=== PATIENT | male | born 1960 | race Caucasian/White ===

== ENCOUNTER 2016-09-23 13:33 | Inpatient (IN) | payer MEDICARE, MEDICAID ==
[~2016-09-23] VITALS: Ht 172.7 cm; Wt 55.7 kg
[2016-09-23 14:25] LABS: BASOPHILS # (AUTO) 0.01 K/uL (0.00-0.20); BASOPHILS % (AUTO) 0.1 % (0.0-2.0); EOSINOPHILS # (AUTO) 0.06 K/uL (0.00-0.70); EOSINOPHILS % (AUTO) 0.76 % (1.0-6.0); HEMATOCRIT 43.9 % (41-53); HEMOGLOBIN 14.3 g/dL (13.5-17.5); LYMPHOCYTES # (AUTO) 1.1 K/uL (1.0-4.8); LYMPHOCYTES % (AUTO) 13.2 % (22.0-44.0); MEAN CORPUSCULAR HEMOGLOBIN 31.4 pg (26.0-34.0); MEAN CORPUSCULAR HGB CONC 32.7 G/dL (31.0-37.0); MEAN CORPUSCULAR VOLUME 96 fL (80-100); MONOCYTES # (AUTO) 0.7 K/uL (0.1-1.0); MONOCYTES % (AUTO) 8.9 % (2.0-9.0); NEUTROPHILS # (AUTO) 6.2 K/uL (1.8-7.7); NEUTROPHILS % (AUTO) 77.1 % (40.0-70.0); PLATELET COUNT (AUTO) 202 K/uL (150-450); RED BLOOD CELL COUNT(AUTO) 4.56 MIL/uL (4.50-5.90); RED CELL DISTRIBUTION WIDTH 14.9 % (11.5-14.5); WHITE BLOOD COUNT (AUTO) 8.1 K/uL (4.5-11.0)
[2016-09-23 14:41] LABS: ANION GAP 2 mmol/L (8-16); CALCIUM, TOTAL 8.6 mg/dL (8.8-10.5); CARBON DIOXIDE 34 mmol/L (22-29); CHLORIDE 105 mmol/L (98-107); CREATININE 0.64 mg/dL (0.60-1.30); GLOMERULAR FILTR. RATE CALC > 60 mL/min (>60); POTASSIUM 3.5 mmol/L (3.5-5.1); SODIUM SERUM 141 mmol/L (136-145); UREA NITROGEN, BLOOD 11 mg/dL (7-18)
[2016-09-23 14:46] LABS: ALANINE AMINOTRANSFERASE 43 U/L (12-78); ALBUMIN 3.4 g/dL (3.4-5.0); ASPARTATE AMINOTRANSFERASE 42 U/L (15-37); BILIRUBIN,TOTAL 0.2 mg/dL (0.1-1.0); TOTAL PROTEIN, SERUM 6.5 g/dL (6.4-8.2)
[2016-09-23] MEDS ORDERED: TRIFLUOPERAZINE HCL 5 MG TABLET PO ONE (18:00)
[2016-09-23 18:53] VITALS: BP 115/73
[2016-09-24] MEDS ORDERED: LOPERAMIDE HCL 2 MG CAPSULE PO PRN (07:30)
[2016-09-24] MEDS ORDERED: CloNIDine HCL 0.1 MG TABLET PO PRN (07:30)
[2016-09-24] MEDS ORDERED: PETROLATUM,WHITE 71 GM JELLY TP PRN (07:30)
[2016-09-24] MEDS ORDERED: MAGNESIUM HYDROXIDE SUSPENSION 30 ML UDCUP PO PRN (07:30)
[2016-09-24] MEDS ORDERED: BACITRACIN 28.4 GM OINTMENT TP PRN (07:30)
[2016-09-24] MEDS ORDERED: MAG HYDROX/AL HYDROX/SIMETH ES 30 ML SUSPENSION UDCUP PO PRN (07:30)
[2016-09-24] MEDS ORDERED: ONDANSETRON HCL 4 MG TABLET PO PRN (07:30)
[2016-09-24 10:09] VITALS: BP 119/60
[2016-09-24] MEDS: NICOTINE 21 MG/24 HOUR PATCH TD SCH (11:19)
[2016-09-24] MEDS: TRIFLUOPERAZINE HCL 5 MG TABLET PO SCH (16:18)
[2016-09-24 20:56] VITALS: BP 123/77
[2016-09-25] MEDS: TRIFLUOPERAZINE HCL 5 MG TABLET PO SCH ×2 (08:49→16:06)
[2016-09-25] MEDS: NICOTINE 21 MG/24 HOUR PATCH TD SCH (08:52)
[2016-09-25 09:07] VITALS: BP 132/79
[2016-09-25 17:06] VITALS: BP 104/63
[2016-09-26 04:42] VITALS: BP 103/66
[2016-09-26 08:00] VITALS: BP 118/73
[2016-09-26] MEDS: TRIFLUOPERAZINE HCL 5 MG TABLET PO SCH ×2 (09:38→16:24)
[2016-09-26] MEDS: NICOTINE 21 MG/24 HOUR PATCH TD SCH (09:38)
[2016-09-26] MEDS: LORazepam 2 MG TABLET PO PRN (14:09)
[2016-09-26] MEDS: HALOPERIDOL 5 MG TABLET PO PRN (14:09)
[2016-09-26 16:14] VITALS: BP 123/79
[2016-09-27 05:27] VITALS: BP 100/65
[2016-09-27] MEDS: NICOTINE 21 MG/24 HOUR PATCH TD SCH (08:12)
[2016-09-27] MEDS: TRIFLUOPERAZINE HCL 5 MG TABLET PO SCH ×2 (08:12→16:40)
[2016-09-27 08:47] VITALS: BP 110/69
[2016-09-27 17:07] VITALS: BP 102/63
[2016-09-28 01:52] VITALS: BP 100/68
[2016-09-28 08:01] VITALS: BP 132/83
[2016-09-28] MEDS: NICOTINE 21 MG/24 HOUR PATCH TD SCH (08:25)
[2016-09-28] MEDS: TRIFLUOPERAZINE HCL 5 MG TABLET PO SCH ×2 (08:25→16:13)
[2016-09-28 16:46] VITALS: BP 113/64
[2016-09-29 02:46] VITALS: BP 107/65
[2016-09-29 08:14] VITALS: BP 125/67
[2016-09-29] MEDS: TRIFLUOPERAZINE HCL 5 MG TABLET PO SCH ×2 (09:17→16:28)
[2016-09-29] MEDS: NICOTINE 21 MG/24 HOUR PATCH TD SCH (09:17)
[2016-09-29 16:43] VITALS: BP 112/77
[2016-09-30 04:00] VITALS: BP 136/69
[2016-09-30 08:00] VITALS: BP 118/77
[2016-09-30] MEDS: TRIFLUOPERAZINE HCL 5 MG TABLET PO SCH ×2 (08:22→16:15)
[2016-09-30] MEDS: NICOTINE 21 MG/24 HOUR PATCH TD SCH (08:23)
[2016-09-30 17:14] VITALS: BP 110/67
[2016-10-01 08:00] VITALS: BP 143/63
[2016-10-01] MEDS: TRIFLUOPERAZINE HCL 5 MG TABLET PO SCH ×2 (08:21→16:30)
[2016-10-01] MEDS: NICOTINE 21 MG/24 HOUR PATCH TD SCH (08:25)
[2016-10-01 17:00] VITALS: BP 133/79
[2016-10-02] MEDS: TRIFLUOPERAZINE HCL 5 MG TABLET PO SCH ×2 (08:23→16:12)
[2016-10-02] MEDS: NICOTINE 21 MG/24 HOUR PATCH TD SCH (08:23)
[2016-10-02] MEDS ORDERED: GuaiFENesin/D-METHORPHAN/PHENYLEPH 5 ML LIQUID ORAL.SYG PO PRN (10:30)
[2016-10-02 10:32] VITALS: BP 143/86
[2016-10-02 16:21] VITALS: BP 100/69
[2016-10-03 04:18] VITALS: BP 111/79
[2016-10-03 08:00] VITALS: BP 110/78
[2016-10-03] MEDS: NICOTINE 21 MG/24 HOUR PATCH TD SCH (08:22)
[2016-10-03] MEDS: TRIFLUOPERAZINE HCL 5 MG TABLET PO SCH ×2 (08:22→17:16)
[2016-10-03] MEDS: LORazepam 2 MG TABLET PO PRN (08:23)
[2016-10-03] MEDS ORDERED: TRIF2 PO (14:47)
[2016-10-03 16:34] VITALS: BP 115/78
[2016-10-04 01:45] VITALS: BP 117/73
[2016-10-04] MEDS: TRIFLUOPERAZINE HCL 5 MG TABLET PO SCH ×2 (08:33→16:38)
[2016-10-04] MEDS: NICOTINE 21 MG/24 HOUR PATCH TD SCH (08:33)
[2016-10-04] MEDS: HALOPERIDOL 5 MG TABLET PO PRN (08:34)
[2016-10-04 10:51] VITALS: BP 110/83
[2016-10-04 17:29] VITALS: BP 118/64
[2016-10-05 05:14] VITALS: BP 127/82
[2016-10-05 08:05] VITALS: BP 131/74
[2016-10-05] MEDS: TRIFLUOPERAZINE HCL 5 MG TABLET PO SCH ×3 (09:00→17:05)
[2016-10-05] MEDS: NICOTINE 21 MG/24 HOUR PATCH TD SCH (09:00)
[2016-10-05 17:00] VITALS: BP 127/82
[2016-10-05] MEDS: HALOPERIDOL 5 MG TABLET PO PRN (23:07)
[2016-10-05] MEDS: LORazepam 2 MG TABLET PO PRN (23:07)
[2016-10-06] MEDS: ALBUTEROL SULFATE HFA 90 MCG/PUFF 8 GM INHALER IH PRN (04:38)
[2016-10-06 08:30] VITALS: BP 132/64
[2016-10-06] MEDS: LORazepam 2 MG TABLET PO PRN (08:44)
[2016-10-06] MEDS: TRIFLUOPERAZINE HCL 5 MG TABLET PO SCH ×2 (08:44→16:47)
[2016-10-06] MEDS: NICOTINE 21 MG/24 HOUR PATCH TD SCH (09:00)
[2016-10-06 18:24] VITALS: BP 118/77
[2016-10-07 08:00] VITALS: BP 133/70
[2016-10-07] MEDS: TRIFLUOPERAZINE HCL 5 MG TABLET PO SCH ×2 (08:40→17:00)
[2016-10-07] MEDS: NICOTINE 21 MG/24 HOUR PATCH TD SCH (08:42)
[2016-10-07] MEDS: BENZOCAINE/MENTHOL LOZENGE [8 LOZENGES/PACKET] MM PRN (09:52)
[2016-10-07] MEDS: ALBUTEROL SULFATE HFA 90 MCG/PUFF 8 GM INHALER IH PRN (09:52)
[2016-10-07 16:43] VITALS: BP 106/60
[2016-10-08 04:26] VITALS: BP 147/77
[2016-10-08] MEDS: HALOPERIDOL 5 MG TABLET PO PRN (07:52)
[2016-10-08] MEDS: NICOTINE 21 MG/24 HOUR PATCH TD SCH (08:01)
[2016-10-08] MEDS: ALBUTEROL SULFATE HFA 90 MCG/PUFF 8 GM INHALER IH PRN (08:23)
[2016-10-08] MEDS: TRIFLUOPERAZINE HCL 5 MG TABLET PO SCH ×2 (08:23→17:59)
[2016-10-08 08:39] VITALS: BP 134/89
[2016-10-08] MEDS ORDERED: LORazepam 2 MG/ML VIAL IM ONE (12:45)
[2016-10-08] MEDS ORDERED: HALOPERIDOL LACTATE 5 MG/ML VIAL IM ONE (12:45)
[2016-10-08] MEDS ORDERED: DiphenhydrAMINE HCL 50 MG/ML VIAL IM ONE (12:45)
[2016-10-08 16:55] VITALS: BP 102/71
[2016-10-09 05:21] VITALS: BP 120/87
[2016-10-09] MEDS: TRIFLUOPERAZINE HCL 5 MG TABLET PO SCH ×2 (08:51→17:13)
[2016-10-09] MEDS: NICOTINE 21 MG/24 HOUR PATCH TD SCH (08:52)
[2016-10-09] MEDS: HALOPERIDOL 5 MG TABLET PO PRN (10:02)
[2016-10-09] MEDS: LORazepam 2 MG TABLET PO PRN (10:03)
[2016-10-09 10:38] VITALS: BP 114/67
[2016-10-09] MEDS ORDERED: TRIF5 PO (11:40)
[2016-10-09 16:02] VITALS: BP 103/71
[2016-10-10] MEDS: NICOTINE 21 MG/24 HOUR PATCH TD SCH (10:00)
[2016-10-10] MEDS: TRIFLUOPERAZINE HCL 5 MG TABLET PO SCH ×2 (10:00→16:06)
[2016-10-10 13:01] VITALS: BP 131/78
[2016-10-10] MEDS: IBUPROFEN 600 MG TABLET PO PRN (13:03)
[2016-10-10 16:49] VITALS: BP 115/69
[2016-10-11 03:41] VITALS: BP 124/85
[2016-10-11] MEDS: TRIFLUOPERAZINE HCL 5 MG TABLET PO SCH ×2 (08:06→16:37)
[2016-10-11] MEDS: NICOTINE 21 MG/24 HOUR PATCH TD SCH (08:07)
[2016-10-11] MEDS: HALOPERIDOL 5 MG TABLET PO PRN ×2 (08:08→15:44)
[2016-10-11 08:10] VITALS: BP 158/91
[2016-10-11] MEDS: LORazepam 2 MG TABLET PO PRN (15:45)
[2016-10-11 16:45] VITALS: BP 123/78
[2016-10-11] MEDS: ZOLPIDEM TARTRATE 10 MG TABLET PO PRN (23:33)
[2016-10-12 00:01] VITALS: BP 107/76
[2016-10-12] MEDS: TRIFLUOPERAZINE HCL 5 MG TABLET PO SCH ×2 (08:41→15:54)
[2016-10-12] MEDS: NICOTINE 21 MG/24 HOUR PATCH TD SCH (08:42)
[2016-10-12 09:00] VITALS: BP 115/73
[2016-10-12] MEDS: HALOPERIDOL 5 MG TABLET PO PRN (12:59)
[2016-10-12] MEDS: LORazepam 2 MG TABLET PO PRN (12:59)
[2016-10-12 18:36] VITALS: BP 117/77
[2016-10-13] MEDS: TRIFLUOPERAZINE HCL 5 MG TABLET PO SCH ×2 (08:07→15:51)
[2016-10-13] MEDS: LORazepam 2 MG TABLET PO PRN (08:07)
[2016-10-13] MEDS: NICOTINE 21 MG/24 HOUR PATCH TD SCH (08:08)
[2016-10-13 16:47] VITALS: BP 120/60
[2016-10-14 00:45] VITALS: BP 110/63
[2016-10-14] MEDS: ZOLPIDEM TARTRATE 10 MG TABLET PO PRN ×2 (00:47→20:56)
[2016-10-14 08:00] VITALS: BP 136/97
[2016-10-14] MEDS: NICOTINE 21 MG/24 HOUR PATCH TD SCH (09:08)
[2016-10-14] MEDS: TRIFLUOPERAZINE HCL 5 MG TABLET PO SCH ×2 (09:09→16:31)
[2016-10-14 18:21] VITALS: BP 131/79
[2016-10-15 08:05] VITALS: BP 124/71
[2016-10-15] MEDS: NICOTINE 21 MG/24 HOUR PATCH TD SCH (09:00)
[2016-10-15] MEDS: TRIFLUOPERAZINE HCL 5 MG TABLET PO SCH ×2 (09:07→16:31)
[2016-10-15 16:34] VITALS: BP 126/72
[2016-10-15] MEDS: IBUPROFEN 600 MG TABLET PO PRN (16:34)
[2016-10-15] MEDS: ZOLPIDEM TARTRATE 10 MG TABLET PO PRN (22:27)
[2016-10-16 09:00] VITALS: BP 114/65
[2016-10-16] MEDS: NICOTINE 21 MG/24 HOUR PATCH TD SCH (09:00)
[2016-10-16] MEDS: TRIFLUOPERAZINE HCL 5 MG TABLET PO SCH ×2 (09:00→16:22)
[2016-10-16] MEDS: LORazepam 2 MG TABLET PO PRN (15:43)
[2016-10-16] MEDS: HALOPERIDOL 5 MG TABLET PO PRN (15:43)
[2016-10-17] MEDS: HALOPERIDOL 5 MG TABLET PO PRN ×2 (08:30→17:34)
[2016-10-17] MEDS: LORazepam 2 MG TABLET PO PRN ×2 (08:30→17:34)
[2016-10-17 08:40] VITALS: BP 115/70
[2016-10-17] MEDS: TRIFLUOPERAZINE HCL 5 MG TABLET PO SCH ×2 (10:29→17:34)
[2016-10-17] MEDS: NICOTINE 21 MG/24 HOUR PATCH TD SCH (10:30)
[2016-10-17 16:40] VITALS: BP 107/70
[2016-10-18 06:31] VITALS: BP 112/70
[2016-10-18 08:10] VITALS: BP 107/58
[2016-10-18] MEDS: TRIFLUOPERAZINE HCL 5 MG TABLET PO SCH ×2 (09:09→16:43)
[2016-10-18] MEDS: NICOTINE 21 MG/24 HOUR PATCH TD SCH (09:16)
[2016-10-18 16:53] VITALS: BP 112/78
[2016-10-18] MEDS: ZOLPIDEM TARTRATE 10 MG TABLET PO PRN (20:44)
[2016-10-19 04:56] VITALS: BP 112/76
[2016-10-19 08:00] VITALS: BP 114/68
[2016-10-19] MEDS: TRIFLUOPERAZINE HCL 5 MG TABLET PO SCH ×2 (08:59→16:50)
[2016-10-19] MEDS: NICOTINE 21 MG/24 HOUR PATCH TD SCH (09:00)
[2016-10-19 16:50] VITALS: BP 129/78
[2016-10-19] MEDS: LORazepam 2 MG TABLET PO PRN (21:38)
[2016-10-20 08:00] VITALS: BP 116/76
[2016-10-20] MEDS: LORazepam 2 MG TABLET PO PRN (08:16)
[2016-10-20] MEDS: TRIFLUOPERAZINE HCL 5 MG TABLET PO SCH ×2 (08:16→16:22)
[2016-10-20] MEDS: NICOTINE 21 MG/24 HOUR PATCH TD SCH (08:16)
[2016-10-20 16:28] VITALS: BP 118/82
[2016-10-20] MEDS: HALOPERIDOL 5 MG TABLET PO PRN (16:36)
[2016-10-21 03:30] VITALS: BP 121/76
[2016-10-21] MEDS: IBUPROFEN 600 MG TABLET PO PRN ×2 (03:35→19:38)
[2016-10-21] MEDS: NICOTINE 21 MG/24 HOUR PATCH TD SCH (08:46)
[2016-10-21] MEDS: TRIFLUOPERAZINE HCL 5 MG TABLET PO SCH ×2 (08:46→16:07)
[2016-10-21] MEDS: LORazepam 2 MG TABLET PO PRN (08:46)
[2016-10-21 10:14] VITALS: BP 140/86
[2016-10-21 16:46] VITALS: BP 126/82
[2016-10-21 19:35] VITALS: BP 108/78
[2016-10-22] MEDS: IBUPROFEN 600 MG TABLET PO PRN (02:43)
[2016-10-22] MEDS: LORazepam 2 MG TABLET PO PRN (08:30)
[2016-10-22] MEDS: TRIFLUOPERAZINE HCL 5 MG TABLET PO SCH ×2 (08:30→16:17)
[2016-10-22] MEDS: NICOTINE 21 MG/24 HOUR PATCH TD SCH (08:30)
[2016-10-22 09:56] VITALS: BP 117/75
[2016-10-22 16:45] VITALS: BP 124/76
[2016-10-23] MEDS: IBUPROFEN 600 MG TABLET PO PRN (00:05)
[2016-10-23 00:06] VITALS: BP 120/76
[2016-10-23] MEDS: TRIFLUOPERAZINE HCL 5 MG TABLET PO SCH ×2 (08:14→16:44)
[2016-10-23] MEDS: NICOTINE 21 MG/24 HOUR PATCH TD SCH (08:17)
[2016-10-23] MEDS ORDERED: GuaiFENesin/D-METHORPHAN/PHENYLEPH 5 ML LIQUID ORAL.SYG PO PRN (10:15)
[2016-10-23 10:36] VITALS: BP 123/68
[2016-10-23] MEDS: BENZOCAINE/MENTHOL LOZENGE [8 LOZENGES/PACKET] MM PRN (12:27)
[2016-10-23] MEDS: LORazepam 2 MG TABLET PO PRN (15:47)
[2016-10-23] MEDS: HALOPERIDOL 5 MG TABLET PO PRN (15:47)
[2016-10-23 16:07] VITALS: BP 119/79
[2016-10-24 02:58] VITALS: BP 125/76
[2016-10-24] MEDS: ACETAMINOPHEN 325 MG TABLET PO PRN ×2 (03:00→23:48)
[2016-10-24 08:12] VITALS: BP 115/79
[2016-10-24] MEDS: TRIFLUOPERAZINE HCL 5 MG TABLET PO SCH ×2 (08:57→16:34)
[2016-10-24] MEDS: NICOTINE 21 MG/24 HOUR PATCH TD SCH (09:00)
[2016-10-24] MEDS: DICLOFENAC SODIUM 1% 100 GM GEL [2GM] TP PRN ×2 (12:24→19:52)
[2016-10-24 16:46] VITALS: BP 142/85
[2016-10-24 19:49] VITALS: BP 132/88
[2016-10-24 21:15] VITALS: BP 132/84
[2016-10-24] MEDS: IBUPROFEN 600 MG TABLET PO PRN (21:16)
[2016-10-24 23:45] VITALS: BP 128/80
[2016-10-25] MEDS: TRIFLUOPERAZINE HCL 5 MG TABLET PO SCH (08:49)
[2016-10-25] MEDS: NICOTINE 21 MG/24 HOUR PATCH TD SCH (09:00)
[2016-10-25 09:18] VITALS: BP 130/72
[2016-10-25] MEDS: DICLOFENAC SODIUM 1% 100 GM GEL [2GM] TP PRN (12:59)
[2016-10-25] MEDS: IBUPROFEN 600 MG TABLET PO PRN ×2 (12:59→19:29)
[2016-10-25] MEDS: TRIFLUOPERAZINE HCL 10 MG TABLET PO SCH (16:08)
[2016-10-25 16:38] VITALS: BP 119/64
[2016-10-25 19:26] VITALS: BP 116/63
[2016-10-25] MEDS: ZOLPIDEM TARTRATE 10 MG TABLET PO PRN (22:26)
[2016-10-26 03:22] VITALS: BP 132/77
[2016-10-26] MEDS: ACETAMINOPHEN 325 MG TABLET PO PRN ×2 (04:35→19:11)
[2016-10-26] MEDS: DICLOFENAC SODIUM 1% 100 GM GEL [2GM] TP PRN (08:54)
[2016-10-26] MEDS: TRIFLUOPERAZINE HCL 10 MG TABLET PO SCH ×2 (08:54→17:10)
[2016-10-26] MEDS: NICOTINE 21 MG/24 HOUR PATCH TD SCH (09:00)
[2016-10-26 09:36] VITALS: BP 111/78
[2016-10-26] MEDS: IBUPROFEN 600 MG TABLET PO PRN (12:20)
[2016-10-26 16:43] VITALS: BP 118/62
[2016-10-26] MEDS: ZOLPIDEM TARTRATE 10 MG TABLET PO PRN (20:30)
[2016-10-27] MEDS: IBUPROFEN 600 MG TABLET PO PRN ×2 (03:08→18:42)
[2016-10-27 03:10] VITALS: BP 121/86
[2016-10-27 08:02] VITALS: BP 131/80
[2016-10-27] MEDS: ACETAMINOPHEN 325 MG TABLET PO PRN (08:02)
[2016-10-27] MEDS: DICLOFENAC SODIUM 1% 100 GM GEL [2GM] TP PRN (08:03)
[2016-10-27] MEDS: NICOTINE 21 MG/24 HOUR PATCH TD SCH (08:03)
[2016-10-27] MEDS: TRIFLUOPERAZINE HCL 10 MG TABLET PO SCH ×2 (08:03→16:44)
[2016-10-27 08:30] VITALS: BP 131/90
[2016-10-27 16:59] VITALS: BP 132/87
[2016-10-28] MEDS: ZOLPIDEM TARTRATE 10 MG TABLET PO PRN ×2 (01:38→21:18)
[2016-10-28] MEDS: TRIFLUOPERAZINE HCL 10 MG TABLET PO SCH ×2 (09:00→16:11)
[2016-10-28] MEDS: NICOTINE 21 MG/24 HOUR PATCH TD SCH ×2 (09:00→09:01)
[2016-10-28] MEDS: IBUPROFEN 600 MG TABLET PO PRN ×2 (10:56→17:09)
[2016-10-28 11:56] VITALS: BP 130/80
[2016-10-28 16:45] VITALS: BP 128/90
[2016-10-28 17:07] VITALS: BP 132/90
[2016-10-29 08:20] VITALS: BP 124/76
[2016-10-29] MEDS: TRIFLUOPERAZINE HCL 10 MG TABLET PO SCH ×2 (08:31→17:04)
[2016-10-29] MEDS: IBUPROFEN 600 MG TABLET PO PRN ×2 (08:32→18:43)
[2016-10-29 08:37] VITALS: BP 124/76
[2016-10-29] MEDS: NICOTINE 21 MG/24 HOUR PATCH TD SCH (09:00)
[2016-10-29 09:33] VITALS: BP 126/80
[2016-10-29 17:20] VITALS: BP 125/88
[2016-10-30 00:11] VITALS: BP 121/73
[2016-10-30] MEDS: ZOLPIDEM TARTRATE 10 MG TABLET PO PRN (00:15)
[2016-10-30 08:00] VITALS: BP 132/56
[2016-10-30] MEDS: TRIFLUOPERAZINE HCL 10 MG TABLET PO SCH ×2 (08:27→16:34)
[2016-10-30] MEDS: NICOTINE 21 MG/24 HOUR PATCH TD SCH (08:27)
[2016-10-30 16:41] VITALS: BP 111/88
[2016-10-31] MEDS: ZOLPIDEM TARTRATE 10 MG TABLET PO PRN (01:02)
[2016-10-31 08:00] VITALS: BP 121/94
[2016-10-31] MEDS: TRIFLUOPERAZINE HCL 10 MG TABLET PO SCH ×2 (08:12→17:15)
[2016-10-31 08:13] VITALS: BP 12/94
[2016-10-31] MEDS: DICLOFENAC SODIUM 1% 100 GM GEL [2GM] TP PRN (08:13)
[2016-10-31] MEDS: ACETAMINOPHEN 325 MG TABLET PO PRN (08:13)
[2016-10-31] MEDS: NICOTINE 21 MG/24 HOUR PATCH TD SCH (09:00)
[2016-10-31] MEDS: BENZTROPINE MESYLATE 2 MG TABLET PO SCH ×2 (11:42→17:15)
[2016-10-31 18:27] VITALS: BP 125/78
[2016-11-01] MEDS: NICOTINE 21 MG/24 HOUR PATCH TD SCH (09:00)
[2016-11-01 09:03] VITALS: BP_SYST 140
[2016-11-01] MEDS: BENZTROPINE MESYLATE 2 MG TABLET PO SCH ×2 (09:09→16:04)
[2016-11-01] MEDS: TRIFLUOPERAZINE HCL 10 MG TABLET PO SCH ×2 (09:09→16:04)
[2016-11-01 16:37] VITALS: BP 104/62
[2016-11-02] MEDS: TRIFLUOPERAZINE HCL 10 MG TABLET PO SCH (08:07)
[2016-11-02] MEDS: BENZTROPINE MESYLATE 2 MG TABLET PO SCH (08:07)
[2016-11-02 08:30] VITALS: BP 130/70
[2016-11-02] MEDS: NICOTINE 21 MG/24 HOUR PATCH TD SCH (09:00)
[2016-11-02] MEDS ORDERED: BENZ2TAB10 PO (09:27)
[2016-11-02] MEDS ORDERED: TRIF10 PO (09:27)
== END 2016-11-02 14:30 | disposition home or self-care (01) | DRG 885 ==
LOC: EMS 13:33 → 3EX 18:29 → UNDODISIN 10-02 14:10
DX: F20.0 Paranoid schizophrenia (principal); E44.0 Moderate protein-calorie malnutrition; Z68.1 Body mass index [BMI] 19.9 or less, adult; F32.9 Major depressive disorder, single episode, unspecified; J44.9 Chronic obstructive pulmonary disease, unspecified; M19.90 Unspecified osteoarthritis, unspecified site; G47.00 Insomnia, unspecified; E83.51 Hypocalcemia; F17.210 Nicotine dependence, cigarettes, uncomplicated; Z98.890 Other specified postprocedural states; Z71.6 Tobacco abuse counseling; Z59.0 Homelessness; Z72.89 Other problems related to lifestyle; Z71.41 Alcohol abuse counseling and surveillance of alcoholic
CPT/HCPCS: 71020; 87081; 99285; G0480; J1200; J1630; J2060; J3535

== ENCOUNTER 2017-10-18 12:13 | Inpatient (IN) | payer MEDICARE, MEDICAID ==
[~2017-10-18] VITALS: Ht 172.7 cm; Wt 59.2 kg
[~2017-10-18 12:13] MED LIST: BENZ2TAB10 PO; TRIF10 PO
[2017-10-18 13:41] LABS: BASOPHILS % (AUTO) 0.3 % (0.0-2.0); EOSINOPHILS % (AUTO) 0.5 % (1.0-6.0); HEMATOCRIT 47.8 % (41-53); HEMOGLOBIN 16.3 g/dL (13.5-17.5); LYMPHOCYTES # (AUTO) 1.2 K/uL (1.0-4.8); LYMPHOCYTES % (AUTO) 10.5 % (22.0-44.0); MEAN CORPUSCULAR HEMOGLOBIN 31.4 pg (26.0-34.0); MEAN CORPUSCULAR HGB CONC 34.1 G/dL (31.0-37.0); MEAN CORPUSCULAR VOLUME 92 fL (80-100); MONOCYTES # (AUTO) 0.7 K/uL (0.1-1.0); MONOCYTES % (AUTO) 6.3 % (2.0-9.0); NEUTROPHILS # (AUTO) 9.1 K/uL (1.8-7.7); NEUTROPHILS % (AUTO) 82.4 % (40.0-70.0); PLATELET COUNT (AUTO) 176 K/uL (150-450); RED CELL DISTRIBUTION WIDTH 13.2 % (11.5-14.5)
[2017-10-18 13:48] LABS: AMPHET/METH SCREEN,URINE NEGATIVE (NEGATIVE); BARBITURATE SCREEN, URINE NEGATIVE (NEGATIVE); BENZODIAZEPINES SCREEN,URINE NEGATIVE (NEGATIVE); CANNABINOID SCREEN,URINE NEGATIVE (NEGATIVE); COCAINE SCREEN,URINE NEGATIVE (NEGATIVE); METHADONE SCREEN, URINE NEGATIVE (NEGATIVE); OPIATE SCREEN,URINE NEGATIVE (NEGATIVE); PHENCYCLIDINE SCREEN,URINE NEGATIVE (NEGATIVE)
[2017-10-18 13:55] LABS: ANION GAP 8 mmol/L (8-16); CALCIUM, TOTAL 9.3 mg/dL (8.8-10.5); CARBON DIOXIDE 28 mmol/L (22-29); CHLORIDE 101 mmol/L (98-107); CREATININE 1.04 mg/dL (0.60-1.30); GLOMERULAR FILTR. RATE CALC > 60 mL/min (>60); GLUCOSE,RANDOM 157 mg/dL (70-110); POTASSIUM 4.7 mmol/L (3.5-5.1); SODIUM SERUM 137 mmol/L (136-145); UREA NITROGEN, BLOOD 25 mg/dL (7-18)
[2017-10-18 14:01] LABS: ALANINE AMINOTRANSFERASE 26 U/L (12-78); ALBUMIN 4.2 g/dL (3.4-5.0); ALKALINE PHOSPHATASE 66 U/L (46-116); ASPARTATE AMINOTRANSFERASE 63 U/L (15-37); BILIRUBIN,TOTAL 1.1 mg/dL (0.1-1.0); TOTAL PROTEIN, SERUM 7.4 g/dL (6.4-8.2)
[2017-10-18] MEDS ORDERED: HALOPERIDOL 5 MG TABLET PO PRN (14:45)
[2017-10-18] MEDS ORDERED: ZOLPIDEM TARTRATE 10 MG TABLET PO PRN (14:45)
[2017-10-18] MEDS ORDERED: LORazepam 2 MG TABLET PO PRN (14:45)
[2017-10-18 16:29] VITALS: BP 106/75
[2017-10-18 16:32] VITALS: BP 106/75
[2017-10-18] MEDS: BENZTROPINE MESYLATE 2 MG TABLET PO SCH (17:08)
[2017-10-18] MEDS ORDERED: PNEUMOCOCCAL VACCINE POLYVALENT 0.5 ML VIAL [PPSV23] IM ONE (17:45)
[2017-10-18] MEDS ORDERED: INFLUENZA VIRUS VACCINE QVS 2017-18 (3YR+)/PF 60 MCG/0.5 ML SYRINGE IM ONE (17:45)
[2017-10-19 00:15] VITALS: BP 101/68
[2017-10-19 08:12] VITALS: BP 117/60
[2017-10-19] MEDS: BENZTROPINE MESYLATE 2 MG TABLET PO SCH ×2 (08:31→16:41)
[2017-10-19 08:53] LABS: BASOPHILS % (AUTO) 0.3 % (0.0-2.0); EOSINOPHILS % (AUTO) 2.3 % (1.0-6.0); HEMOGLOBIN 15.5 g/dL (13.5-17.5); LYMPHOCYTES # (AUTO) 1.6 K/uL (1.0-4.8); LYMPHOCYTES % (AUTO) 14.7 % (22.0-44.0); MEAN CORPUSCULAR HEMOGLOBIN 31.5 pg (26.0-34.0); MEAN CORPUSCULAR HGB CONC 33.8 G/dL (31.0-37.0); MEAN CORPUSCULAR VOLUME 93 fL (80-100); MONOCYTES # (AUTO) 0.9 K/uL (0.1-1.0); MONOCYTES % (AUTO) 8.5 % (2.0-9.0); NEUTROPHILS # (AUTO) 7.9 K/uL (1.8-7.7); NEUTROPHILS % (AUTO) 74.2 % (40.0-70.0); PLATELET COUNT (AUTO) 166 K/uL (150-450); RED BLOOD CELL COUNT(AUTO) 4.92 MIL/uL (4.50-5.90); RED CELL DISTRIBUTION WIDTH 13.5 % (11.5-14.5)
[2017-10-19] MEDS ORDERED: TRIFLUOPERAZINE HCL 10 MG TABLET PO SCH (09:00)
[2017-10-19 09:24] LABS: HEMOGLOBIN A1C 5.4 % (4.5-6.2)
[2017-10-19 09:54] LABS: FREE T4 (FREE THYROXINE) 1.05 ng/dL (0.76-1.46); THYROID STIMULATING HORMONE 0.57 uIU/mL (0.36-3.74)
[2017-10-19] MEDS ORDERED: LOPERAMIDE HCL 2 MG CAPSULE PO PRN (11:30)
[2017-10-19] MEDS ORDERED: MAGNESIUM HYDROXIDE SUSPENSION 30 ML UDCUP PO PRN (11:30)
[2017-10-19] MEDS ORDERED: ONDANSETRON HCL 4 MG TABLET PO PRN (11:30)
[2017-10-19] MEDS ORDERED: BACITRACIN 28.4 GM OINTMENT TP PRN (11:30)
[2017-10-19] MEDS ORDERED: MAG HYDROX/AL HYDROX/SIMETH ES 30 ML SUSPENSION UDCUP PO PRN (11:30)
[2017-10-19] MEDS ORDERED: PETROLATUM,WHITE 71 GM JELLY TP PRN (11:30)
[2017-10-19] MEDS ORDERED: ACETAMINOPHEN 325 MG TABLET PO PRN (11:30)
[2017-10-19] MEDS ORDERED: ALBUTEROL SULFATE HFA 90 MCG/PUFF 8 GM INHALER IH PRN (11:30)
[2017-10-19] MEDS ORDERED: IBUPROFEN 600 MG TABLET PO PRN (11:30)
[2017-10-19] MEDS ORDERED: CloNIDine HCL 0.1 MG TABLET PO PRN (11:30)
[2017-10-19] MEDS ORDERED: BENZOCAINE/MENTHOL LOZENGE MM PRN (11:30)
[2017-10-19 16:30] VITALS: BP 109/60
[2017-10-19] MEDS: TRIFLUOPERAZINE HCL 10 MG TABLET PO SCH (16:41)
[2017-10-20 06:00] VITALS: BP 105/61
[2017-10-20] MEDS: BENZTROPINE MESYLATE 2 MG TABLET PO SCH ×2 (08:19→17:05)
[2017-10-20] MEDS: OMEPRAZOLE 20 MG CAPSULE PO SCH (08:19)
[2017-10-20] MEDS: DOCUSATE SODIUM 100 MG CAPSULE PO SCH (08:19)
[2017-10-20] MEDS: TRIFLUOPERAZINE HCL 10 MG TABLET PO SCH ×2 (08:20→17:05)
[2017-10-20 08:32] VITALS: BP 102/62
[2017-10-20] MEDS: TERBINAFINE HCL 1% 30 GM CREAM TP SCH (08:56)
[2017-10-20 16:03] VITALS: BP 109/66
[2017-10-21 01:31] VITALS: BP 109/63
[2017-10-21 08:33] VITALS: BP 100/66
[2017-10-21] MEDS: BENZTROPINE MESYLATE 2 MG TABLET PO SCH ×2 (08:39→16:09)
[2017-10-21] MEDS: OMEPRAZOLE 20 MG CAPSULE PO SCH (08:39)
[2017-10-21] MEDS: TRIFLUOPERAZINE HCL 10 MG TABLET PO SCH ×2 (08:39→16:09)
[2017-10-21] MEDS: DOCUSATE SODIUM 100 MG CAPSULE PO SCH (08:39)
[2017-10-21] MEDS: TERBINAFINE HCL 1% 30 GM CREAM TP SCH ×2 (08:40→09:00)
[2017-10-21 16:15] VITALS: BP 107/61
[2017-10-22 00:35] VITALS: BP 108/65
[2017-10-22 08:03] VITALS: BP 112/62
[2017-10-22] MEDS: TRIFLUOPERAZINE HCL 10 MG TABLET PO SCH ×2 (08:34→16:37)
[2017-10-22] MEDS: OMEPRAZOLE 20 MG CAPSULE PO SCH (08:34)
[2017-10-22] MEDS: BENZTROPINE MESYLATE 2 MG TABLET PO SCH ×2 (08:34→16:36)
[2017-10-22] MEDS: DOCUSATE SODIUM 100 MG CAPSULE PO SCH (08:34)
[2017-10-22] MEDS: TERBINAFINE HCL 1% 30 GM CREAM TP SCH (08:41)
[2017-10-22 16:01] VITALS: BP 108/66
[2017-10-23 01:14] VITALS: BP 101/63
[2017-10-23 08:17] VITALS: BP 116/66
[2017-10-23] MEDS: DOCUSATE SODIUM 100 MG CAPSULE PO SCH (08:45)
[2017-10-23] MEDS: OMEPRAZOLE 20 MG CAPSULE PO SCH (08:45)
[2017-10-23] MEDS: BENZTROPINE MESYLATE 2 MG TABLET PO SCH ×2 (08:45→16:46)
[2017-10-23] MEDS: TRIFLUOPERAZINE HCL 10 MG TABLET PO SCH ×2 (08:51→16:46)
[2017-10-23 16:03] VITALS: BP 126/72
[2017-10-24 02:38] VITALS: BP 115/70
[2017-10-24 08:10] VITALS: BP 112/70
[2017-10-24] MEDS: BENZTROPINE MESYLATE 2 MG TABLET PO SCH ×2 (08:16→16:51)
[2017-10-24] MEDS: TRIFLUOPERAZINE HCL 10 MG TABLET PO SCH ×2 (08:17→16:51)
[2017-10-24] MEDS: OMEPRAZOLE 20 MG CAPSULE PO SCH (08:17)
[2017-10-24] MEDS: DOCUSATE SODIUM 100 MG CAPSULE PO SCH (08:17)
[2017-10-24 16:09] VITALS: BP 116/65
[2017-10-25 06:50] VITALS: BP 105/67
[2017-10-25 08:12] VITALS: BP 102/66
[2017-10-25] MEDS: DOCUSATE SODIUM 100 MG CAPSULE PO SCH (08:42)
[2017-10-25] MEDS: BENZTROPINE MESYLATE 2 MG TABLET PO SCH ×2 (08:42→16:34)
[2017-10-25] MEDS: TRIFLUOPERAZINE HCL 10 MG TABLET PO SCH ×2 (08:42→16:34)
[2017-10-25] MEDS: OMEPRAZOLE 20 MG CAPSULE PO SCH (08:42)
[2017-10-25 16:07] VITALS: BP 103/63
[2017-10-26 06:57] VITALS: BP 101/60
[2017-10-26 08:24] VITALS: BP 109/71
[2017-10-26] MEDS: BENZTROPINE MESYLATE 2 MG TABLET PO SCH ×2 (08:25→16:11)
[2017-10-26] MEDS: TRIFLUOPERAZINE HCL 10 MG TABLET PO SCH ×2 (08:26→16:12)
[2017-10-26] MEDS: DOCUSATE SODIUM 100 MG CAPSULE PO SCH (08:26)
[2017-10-26] MEDS: OMEPRAZOLE 20 MG CAPSULE PO SCH (08:26)
[2017-10-26 16:15] VITALS: BP 101/60
[2017-10-27 00:22] VITALS: BP 119/65
[2017-10-27] MEDS: TRIFLUOPERAZINE HCL 10 MG TABLET PO SCH ×2 (08:18→16:34)
[2017-10-27] MEDS: OMEPRAZOLE 20 MG CAPSULE PO SCH (08:19)
[2017-10-27] MEDS: BENZTROPINE MESYLATE 2 MG TABLET PO SCH ×2 (08:19→16:34)
[2017-10-27] MEDS: DOCUSATE SODIUM 100 MG CAPSULE PO SCH (08:19)
[2017-10-27 08:23] VITALS: BP 104/62
[2017-10-27 16:14] VITALS: BP 118/63
[2017-10-28 00:13] VITALS: BP 108/61
[2017-10-28] MEDS: TRIFLUOPERAZINE HCL 10 MG TABLET PO SCH ×2 (08:06→16:17)
[2017-10-28] MEDS: DOCUSATE SODIUM 100 MG CAPSULE PO SCH (08:06)
[2017-10-28] MEDS: OMEPRAZOLE 20 MG CAPSULE PO SCH (08:06)
[2017-10-28] MEDS: BENZTROPINE MESYLATE 2 MG TABLET PO SCH ×2 (08:06→16:17)
[2017-10-28 08:17] VITALS: BP 105/61
[2017-10-28 16:09] VITALS: BP 102/64
[2017-10-29 01:02] VITALS: BP 107/66
[2017-10-29 08:32] VITALS: BP 108/63
[2017-10-29] MEDS: DOCUSATE SODIUM 100 MG CAPSULE PO SCH (08:43)
[2017-10-29] MEDS: OMEPRAZOLE 20 MG CAPSULE PO SCH (08:43)
[2017-10-29] MEDS: TRIFLUOPERAZINE HCL 10 MG TABLET PO SCH ×2 (08:43→16:38)
[2017-10-29] MEDS: BENZTROPINE MESYLATE 2 MG TABLET PO SCH ×2 (08:43→16:38)
[2017-10-29 16:03] VITALS: BP 109/65
[2017-10-30 06:11] VITALS: BP 105/62
[2017-10-30] MEDS: OMEPRAZOLE 20 MG CAPSULE PO SCH (08:20)
[2017-10-30] MEDS: BENZTROPINE MESYLATE 2 MG TABLET PO SCH ×2 (08:20→16:43)
[2017-10-30] MEDS: DOCUSATE SODIUM 100 MG CAPSULE PO SCH (08:20)
[2017-10-30] MEDS: TRIFLUOPERAZINE HCL 10 MG TABLET PO SCH ×2 (08:20→16:43)
[2017-10-30 08:22] VITALS: BP 101/61
[2017-10-30 16:10] VITALS: BP 115/61
[2017-10-31 00:18] VITALS: BP 106/71
[2017-10-31] MEDS: OMEPRAZOLE 20 MG CAPSULE PO SCH (08:51)
[2017-10-31] MEDS: DOCUSATE SODIUM 100 MG CAPSULE PO SCH (08:52)
[2017-10-31] MEDS: BENZTROPINE MESYLATE 2 MG TABLET PO SCH ×2 (08:52→16:09)
[2017-10-31] MEDS: TRIFLUOPERAZINE HCL 10 MG TABLET PO SCH ×2 (08:52→16:09)
[2017-10-31 09:10] VITALS: BP 107/69
[2017-10-31 16:09] VITALS: BP 116/72
[2017-11-01 06:13] VITALS: BP 121/87
[2017-11-01] MEDS: BENZTROPINE MESYLATE 2 MG TABLET PO SCH ×2 (08:25→16:33)
[2017-11-01] MEDS: TRIFLUOPERAZINE HCL 10 MG TABLET PO SCH ×2 (08:25→16:33)
[2017-11-01] MEDS: OMEPRAZOLE 20 MG CAPSULE PO SCH (08:25)
[2017-11-01 08:27] VITALS: BP 127/78
[2017-11-01] MEDS: DOCUSATE SODIUM 100 MG CAPSULE PO SCH (08:29)
[2017-11-01 16:05] VITALS: BP 107/72
[2017-11-02 00:15] VITALS: BP 101/60
[2017-11-02] MEDS: OMEPRAZOLE 20 MG CAPSULE PO SCH (08:26)
[2017-11-02] MEDS: BENZTROPINE MESYLATE 2 MG TABLET PO SCH ×2 (08:26→16:09)
[2017-11-02] MEDS: TRIFLUOPERAZINE HCL 10 MG TABLET PO SCH ×2 (08:26→16:09)
[2017-11-02 08:29] VITALS: BP 110/67
[2017-11-02] MEDS: DOCUSATE SODIUM 100 MG CAPSULE PO SCH (08:34)
[2017-11-02 17:17] VITALS: BP 102/67
[2017-11-03 01:43] VITALS: BP 102/67
[2017-11-03 08:08] VITALS: BP 104/66
[2017-11-03] MEDS: TRIFLUOPERAZINE HCL 10 MG TABLET PO SCH ×2 (08:22→16:17)
[2017-11-03] MEDS: BENZTROPINE MESYLATE 2 MG TABLET PO SCH ×2 (08:22→16:16)
[2017-11-03] MEDS: OMEPRAZOLE 20 MG CAPSULE PO SCH (08:22)
[2017-11-03] MEDS: DOCUSATE SODIUM 100 MG CAPSULE PO SCH (08:26)
[2017-11-03 16:15] VITALS: BP 124/70
[2017-11-04 06:37] VITALS: BP 108/76
[2017-11-04 08:04] VITALS: BP 102/63
[2017-11-04] MEDS: BENZTROPINE MESYLATE 2 MG TABLET PO SCH ×2 (08:35→16:06)
[2017-11-04] MEDS: OMEPRAZOLE 20 MG CAPSULE PO SCH (08:35)
[2017-11-04] MEDS: TRIFLUOPERAZINE HCL 10 MG TABLET PO SCH ×2 (08:35→16:06)
[2017-11-04] MEDS: DOCUSATE SODIUM 100 MG CAPSULE PO SCH (08:41)
[2017-11-04 16:15] VITALS: BP 106/67
[2017-11-05 01:17] VITALS: BP 102/62
[2017-11-05 08:08] VITALS: BP 112/72
[2017-11-05] MEDS: BENZTROPINE MESYLATE 2 MG TABLET PO SCH ×2 (09:06→16:46)
[2017-11-05] MEDS: OMEPRAZOLE 20 MG CAPSULE PO SCH (09:06)
[2017-11-05] MEDS: DOCUSATE SODIUM 100 MG CAPSULE PO SCH (09:06)
[2017-11-05] MEDS: TRIFLUOPERAZINE HCL 10 MG TABLET PO SCH ×2 (09:06→16:46)
[2017-11-05] MEDS: LACTOBAC ACID/BULG/BIFID/THERM TABLET PO SCH (14:00)
[2017-11-05 16:05] VITALS: BP 108/67
[2017-11-06 05:59] VITALS: BP 109/68
[2017-11-06 08:03] VITALS: BP 110/71
[2017-11-06] MEDS: BENZTROPINE MESYLATE 2 MG TABLET PO SCH ×2 (08:06→16:40)
[2017-11-06] MEDS: OMEPRAZOLE 20 MG CAPSULE PO SCH (08:06)
[2017-11-06] MEDS: TRIFLUOPERAZINE HCL 10 MG TABLET PO SCH ×2 (08:06→16:39)
[2017-11-06] MEDS: LACTOBAC ACID/BULG/BIFID/THERM TABLET PO SCH (08:06)
[2017-11-06 16:06] VITALS: BP 139/73
[2017-11-07 01:58] VITALS: BP 112/62
[2017-11-07 08:07] VITALS: BP 103/53
[2017-11-07] MEDS ORDERED: LACT1CAP78 PO (08:20)
[2017-11-07] MEDS ORDERED: OMEP10SU2 PO (08:20)
[2017-11-07] MEDS: TRIFLUOPERAZINE HCL 10 MG TABLET PO SCH ×2 (08:34→16:31)
[2017-11-07] MEDS: LACTOBAC ACID/BULG/BIFID/THERM TABLET PO SCH (08:34)
[2017-11-07] MEDS: BENZTROPINE MESYLATE 2 MG TABLET PO SCH ×2 (08:34→16:31)
[2017-11-07] MEDS: OMEPRAZOLE 20 MG CAPSULE PO SCH (08:34)
[2017-11-07 16:17] VITALS: BP 105/63
[2017-11-08 00:08] VITALS: BP_SYST 109; BP_SYST 99; BP_DIAS 65
[2017-11-08 08:00] VITALS: BP 143/70
[2017-11-08] MEDS: TRIFLUOPERAZINE HCL 10 MG TABLET PO SCH (08:22)
[2017-11-08] MEDS: BENZTROPINE MESYLATE 2 MG TABLET PO SCH (08:22)
[2017-11-08] MEDS: LACTOBAC ACID/BULG/BIFID/THERM TABLET PO SCH (08:22)
[2017-11-08] MEDS: OMEPRAZOLE 20 MG CAPSULE PO SCH (08:27)
== END 2017-11-08 09:55 | disposition home or self-care (01) | DRG 885 ==
LOC: EEVIPCON 12:14 → EMS 12:14 → B2X 14:47
DX: F20.0 Paranoid schizophrenia (principal); E44.1 Mild protein-calorie malnutrition; Z68.1 Body mass index [BMI] 19.9 or less, adult; F17.200 Nicotine dependence, unspecified, uncomplicated; G47.00 Insomnia, unspecified; I10 Essential (primary) hypertension; J44.9 Chronic obstructive pulmonary disease, unspecified; K21.9 Gastro-esophageal reflux disease without esophagitis; K59.00 Constipation, unspecified; M19.90 Unspecified osteoarthritis, unspecified site; R19.7 Diarrhea, unspecified; Z71.6 Tobacco abuse counseling; Z59.9 Problem related to housing and economic circumstances, unspecified; Z91.83 Wandering in diseases classified elsewhere; Z79.899 Other long term (current) drug therapy
CPT/HCPCS: 83036; 84439; 84443; 87081; 99285; G0480

== ENCOUNTER 2018-11-11 01:35 | Emergency (ER) | payer MEDICARE, OTHER ==
[~2018-11-11] VITALS: Ht 170.2 cm; Wt 59.1 kg
[~2018-11-11 01:35] MED LIST changes: -BENZ2TAB10 PO; +DIVA-78 PO; +MULT-1239 PO; +RISP3 PO; -TRIF10 PO
[2018-11-11 01:59] LABS: GLUCOSE,POINT OF CARE 93 MG/DL (70-110)
[2018-11-11 02:11] LABS: BASOPHILS % (AUTO) 0.8 % (0.0-2.0); EOSINOPHILS % (AUTO) 4.8 % (1.0-6.0); HEMATOCRIT 43.1 % (41-53); HEMOGLOBIN 14.1 g/dL (13.5-17.5); LYMPHOCYTES # (AUTO) 1.3 K/uL (1.0-4.8); LYMPHOCYTES % (AUTO) 12.9 % (22.0-44.0); MEAN CORPUSCULAR HEMOGLOBIN 30.9 pg (26.0-34.0); MEAN CORPUSCULAR HGB CONC 32.7 G/dL (31.0-37.0); MEAN CORPUSCULAR VOLUME 94 fL (80-100); MONOCYTES # (AUTO) 0.7 K/uL (0.1-1.0); MONOCYTES % (AUTO) 6.5 % (2.0-9.0); NEUTROPHILS # (AUTO) 7.7 K/uL (1.8-7.7); PLATELET COUNT (AUTO) 181 K/uL (150-450); RED BLOOD CELL COUNT(AUTO) 4.57 MIL/uL (4.50-5.90); RED CELL DISTRIBUTION WIDTH 14.8 % (11.5-14.5)
[2018-11-11 02:19] LABS: ANION GAP 4 mmol/L (8-16); CALCIUM, TOTAL 9.4 mg/dL (8.8-10.5); CARBON DIOXIDE 34 mmol/L (22-29); CHLORIDE 102 mmol/L (98-107); CREATININE 0.73 mg/dL (0.60-1.30); GLOMERULAR FILTR. RATE CALC > 60 mL/min (>60); GLUCOSE,RANDOM 84 mg/dL (70-110); POTASSIUM 3.6 mmol/L (3.5-5.1); SODIUM SERUM 140 mmol/L (136-145); UREA NITROGEN, BLOOD 10 mg/dL (7-18)
[2018-11-11 02:25] LABS: ALANINE AMINOTRANSFERASE 25 U/L (12-78); ALBUMIN 3.3 g/dL (3.4-5.0); ALKALINE PHOSPHATASE 70 U/L (46-116); ASPARTATE AMINOTRANSFERASE 20 U/L (15-37); BILIRUBIN,TOTAL 0.2 mg/dL (0.1-1.0); TOTAL PROTEIN, SERUM 6.7 g/dL (6.4-8.2)
[2018-11-11 03:36] VITALS: BP 118/88
== END 2018-11-11 03:57 | disposition home or self-care (01) ==
LOC: EMS 01:36
DX: F29 Unspecified psychosis not due to a substance or known physiological condition (principal); F17.210 Nicotine dependence, cigarettes, uncomplicated; Z59.0 Homelessness
CPT/HCPCS: 36415; 80053; 82962; 85025; 99285; G0480

== ENCOUNTER 2018-11-12 09:16 | Emergency (ER) | payer MEDICARE, OTHER ==
[~2018-11-12] VITALS: Ht 170.2 cm; Wt 72.7 kg
[2018-11-12 11:26] LABS: BASOPHILS % (AUTO) 1.3 % (0.0-2.0); EOSINOPHILS % (AUTO) 1.9 % (1.0-6.0); HEMATOCRIT 43.4 % (41-53); HEMOGLOBIN 14.3 g/dL (13.5-17.5); LYMPHOCYTES # (AUTO) 1.5 K/uL (1.0-4.8); LYMPHOCYTES % (AUTO) 12.7 % (22.0-44.0); MEAN CORPUSCULAR HEMOGLOBIN 30.9 pg (26.0-34.0); MEAN CORPUSCULAR HGB CONC 32.8 G/dL (31.0-37.0); MEAN CORPUSCULAR VOLUME 94 fL (80-100); MONOCYTES # (AUTO) 0.9 K/uL (0.1-1.0); MONOCYTES % (AUTO) 7.7 % (2.0-9.0); NEUTROPHILS % (AUTO) 76.4 % (40.0-70.0); PLATELET COUNT (AUTO) 189 K/uL (150-450); RED BLOOD CELL COUNT(AUTO) 4.61 MIL/uL (4.50-5.90); RED CELL DISTRIBUTION WIDTH 14.6 % (11.5-14.5)
[2018-11-12 11:42] LABS: ANION GAP 6 mmol/L (8-16); CALCIUM, TOTAL 9.5 mg/dL (8.8-10.5); CARBON DIOXIDE 31 mmol/L (22-29); CHLORIDE 104 mmol/L (98-107); CREATININE 0.69 mg/dL (0.60-1.30); GLOMERULAR FILTR. RATE CALC > 60 mL/min (>60); GLUCOSE,RANDOM 90 mg/dL (70-110); SODIUM SERUM 141 mmol/L (136-145); UREA NITROGEN, BLOOD 9 mg/dL (7-18)
[2018-11-12 11:47] LABS: ALANINE AMINOTRANSFERASE 23 U/L (12-78); ALBUMIN 3.3 g/dL (3.4-5.0); ALKALINE PHOSPHATASE 71 U/L (46-116); ASPARTATE AMINOTRANSFERASE 24 U/L (15-37); BILIRUBIN,TOTAL 0.3 mg/dL (0.1-1.0); TOTAL PROTEIN, SERUM 6.7 g/dL (6.4-8.2)
[2018-11-12 15:04] VITALS: BP 104/64
== END 2018-11-12 15:13 | disposition home or self-care (01) ==
LOC: EMS 09:18
DX: F32.9 Major depressive disorder, single episode, unspecified (principal); F17.210 Nicotine dependence, cigarettes, uncomplicated; Z79.899 Other long term (current) drug therapy
CPT/HCPCS: 36415; 80053; 85025; 99285; G0480